=== PATIENT | male | born 1980 | race Caucasian/White ===

== ENCOUNTER 2021-05-23 21:09 | Emergency (ER) | payer OTHER ==
[2021-05-24] MEDS ORDERED: HYDROCODON-ACE1 EAC4 PO (03:00)
== END 2021-05-24 03:29 | disposition home or self-care (01) ==
LOC: ER1 21:09
DX: M25.561 Pain in right knee (principal); I51.9 Heart disease, unspecified; E11.40 Type 2 diabetes mellitus with diabetic neuropathy, unspecified; Z79.4 Long term (current) use of insulin; F17.220 Nicotine dependence, chewing tobacco, uncomplicated
CPT/HCPCS: 73564; 99283

== ENCOUNTER 2021-09-04 14:27 | Emergency (ER) | payer OTHER ==
[~2021-09-04 14:27] MED LIST: HYDROCODON-ACE1 EAC4 PO
== END 2021-09-04 15:46 | disposition home or self-care (01) ==
LOC: ER1 14:27
DX: S90.32XA Contusion of left foot, initial encounter (principal); E11.9 Type 2 diabetes mellitus without complications; I11.9 Hypertensive heart disease without heart failure; W19.XXXA Unspecified fall, initial encounter; Y92.009 Unspecified place in unspecified non-institutional (private) residence as the place of occurrence of the external cause
CPT/HCPCS: 73630; 99283

== ENCOUNTER 2021-12-16 19:09 | Emergency (ER) | payer OTHER ==
[2021-12-16] MEDS ORDERED: TYLENOL EXTRA500 MG PO (21:25)
== END 2021-12-16 21:35 | disposition home or self-care (01) ==
LOC: ER1 19:09
DX: S92.411A Displaced fracture of proximal phalanx of right great toe, initial encounter for closed fracture (principal); Z86.73 Personal history of transient ischemic attack (TIA), and cerebral infarction without residual deficits; Z88.6 Allergy status to analgesic agent; W54.1XXA Struck by dog, initial encounter; Y92.009 Unspecified place in unspecified non-institutional (private) residence as the place of occurrence of the external cause
CPT/HCPCS: 73630; 99283